=== PATIENT | male | born 1960 | race Caucasian/White ===

== ENCOUNTER 2022-07-02 17:27 | Emergency (ER) | payer SELFPAY ==
--- NOTE | 2022-07-02 17:56 | ED.RN ---
INCORRECT PT FOR THIS DATE OF SERVICE. PT NOT SEEN IN ED ON THIS DATE.
== END 2022-07-02 23:59 | disposition home or self-care (01) ==
LOC: ED 09-11 15:17
PROVIDERS: PCP Internal Medicine
DX: Z00.00 Encounter for general adult medical examination without abnormal findings (principal)
CPT/HCPCS: J1940